=== PATIENT | male | born 1980 | race Caucasian/White ===

== ENCOUNTER 2019-08-22 15:50 | Emergency (ER) | payer OTHER ==
[~2019-08-22] VITALS: Ht 177.8 cm; Wt 100.0 kg
[2019-08-22] MEDS ORDERED: HYDROcodone/acetaminophen 5mg/325mg tablet PO ONE (16:55)
[2019-08-22] MEDS ORDERED: ondansetron 4mg rapidly disintigrating tab PO ONE (16:55)
[2019-08-22] MEDS ORDERED: TRAM50TA2 PO (17:02)
--- NOTE | 2019-08-22 17:45 | NUR ---
NOTIFIED GIN KOENIG ABOUT PT DISCHARGE BP AT 163/119. ORDERED TO HAVE PT WAIT FOR PAIN MEDS AND RETAKE IN A FEW MINUTES
[2019-08-22 18:25] VITALS: BP 163/119
== END 2019-08-22 18:27 | disposition home or self-care (01) ==
LOC: ER 15:51
DX: M25.512 Pain in left shoulder (principal); F17.200 Nicotine dependence, unspecified, uncomplicated; Z98.0 Intestinal bypass and anastomosis status; Z98.890 Other specified postprocedural states; Z88.5 Allergy status to narcotic agent; Z91.018 Allergy to other foods; Z88.8 Allergy status to other drugs, medicaments and biological substances; Z79.899 Other long term (current) drug therapy; V49.9XXA Car occupant (driver) (passenger) injured in unspecified traffic accident, initial encounter; Y93.89 Activity, other specified; Y92.410 Unspecified street and highway as the place of occurrence of the external cause; Y99.8 Other external cause status
CPT/HCPCS: 73030; 99283; 99284